=== PATIENT | male | born 1975 | race Caucasian/White ===

== ENCOUNTER 2020-09-29 06:11 | Day surgery (SDC) | payer BC ==
[~2020-09-29] VITALS: Ht 182.9 cm; Wt 90.7 kg
[~2020-09-29 06:11] MED LIST: CEPHALEXIN500 M1 PO
[2020-09-29 07:46] VITALS: BP 107/60; Ht 182.9 cm; Wt 90.7 kg
[2020-09-29] MEDS ORDERED: [UNRECOGNIZED DRUG - OTHER] PO (09:38)
[2020-09-29] MEDS ORDERED: TYLENOL W/CODEI1 TAB PO (09:39)
--- NOTE | 2020-09-29 12:00 | NUR ---
1100 IV REMOVED AND INSTRUCTIONS GIVEN.
== END 2020-09-29 11:25 | disposition home or self-care (01) ==
LOC: D.OPS 06:11
PROVIDERS: ATTEND Surgery
DX: L73.2 Hidradenitis suppurativa (principal); L02.214 Cutaneous abscess of groin; N49.2 Inflammatory disorders of scrotum; K61.0 Anal abscess

== ENCOUNTER → 2020-10-22 08:09 | Outpatient (CLI) | payer BC ==
[2020-09-29 07:46] VITALS: BMI 27.2
[~2020-10-22 08:09] MED LIST changes: +TYLENOL W/CODEI1 TAB PO; +[UNRECOGNIZED DRUG - OTHER] PO
== END | disposition home or self-care (01) ==
LOC: D.NM 08:09
PROVIDERS: ATTEND Family Medicine
DX: M54.5 Low back pain (principal); L73.2 Hidradenitis suppurativa

== ENCOUNTER → 2020-10-27 10:32 | Outpatient (CLI) | payer BC ==
[2020-09-29 07:46] VITALS: BMI 27.2
== END | disposition home or self-care (01) ==
LOC: D.MRI 10-22 09:00
PROVIDERS: ATTEND Family Medicine
DX: M54.5 Low back pain (principal); L73.2 Hidradenitis suppurativa

== ENCOUNTER 2020-11-11 11:59 | Day surgery (SDC) | payer BC ==
[~2020-11-11] VITALS: Ht 182.9 cm; Wt 86.2 kg
[2020-11-11 12:57] VITALS: BP 122/83; Ht 182.9 cm; Wt 86.2 kg
--- NOTE | 2020-11-11 15:52 | NUR ---
DISCHARGED AMBULATORY, ACCOMPANIED BY THIS NURSE, TO POV WITH FRIEND DRIVING. ALL BELONGINGS AND DC PACKET WITH PT.
== END 2020-11-11 15:52 | disposition home or self-care (01) ==
LOC: D.OPS 11:59
PROVIDERS: ATTEND Surgery
DX: L02.215 Cutaneous abscess of perineum (principal); L02.214 Cutaneous abscess of groin; L02.415 Cutaneous abscess of right lower limb; L02.416 Cutaneous abscess of left lower limb

== ENCOUNTER 2020-12-17 19:56 | Emergency (ER) | payer BC ==
[2020-11-11 12:57] VITALS: BMI 24.4
== END 2020-12-17 20:11 | disposition left against medical advice (07) ==
LOC: D.ER 19:56
DX: Z53.21 Procedure and treatment not carried out due to patient leaving prior to being seen by health care provider (principal)